=== PATIENT | female | born 1995 | race Two or more races ===

== ENCOUNTER 2022-09-15 00:51 | Observation (INO) | payer BC, OTHER ==
[~2022-09-15] VITALS: Ht 147.3 cm; Wt 49.9 kg
== END 2022-09-15 01:31 | disposition home or self-care (01) ==
LOC: LDRP 00:51
PROVIDERS: ADMIT Obstetrics & Gynecology; ATTEND Obstetrics & Gynecology
DX: O99.612 Diseases of the digestive system complicating pregnancy, second trimester (principal); K29.70 Gastritis, unspecified, without bleeding; Z3A.26 26 weeks gestation of pregnancy
CPT/HCPCS: 59025; 81002; 94760; G0378